=== PATIENT | female | born 1945 | race Caucasian/White ===

== ENCOUNTER → 2016-12-02 | Outpatient (CLI) | payer OTHER, BC ==
[~2016-12-02] MED LIST: ASPIRIN81 M2 PO; OXYBUTYNIN CHLOR5 M1 PO; PRAVASTATIN SOD40 MG PO; ROXICODONE5 MG PO; ZOFRAN4 MG PO
== END | disposition home or self-care (01) ==
LOC: EKG 11-30 10:00
DX: C48.1 Malignant neoplasm of specified parts of peritoneum (principal); C48.2 Malignant neoplasm of peritoneum, unspecified; R18.0 Malignant ascites
CPT/HCPCS: 93306

== ENCOUNTER 2016-12-18 10:48 | Emergency (ER) | payer OTHER, BC ==
[~2016-12-18] VITALS: Ht 167.6 cm; Wt 54.9 kg
[2016-12-18 12:13] LABS: HEMATOCRIT 32.5 % (36.0-46.0); INSTRUMENT ABS NEUTROPHIL CT 1.9 K/uL; LYMPHOCYTE COUNT 0.4 K/uL (1.0-2.8); MCH 33.4 PG (29.0-34.0); MCHC 32.9 G/DL (30.0-36.0); MEAN PLAT.VOLUME 9.8 uM^3 (9.5-12.4); MONOCYTE (%) 20.8 % (3-12); MONOCYTE COUNT 0.6 K/uL (0-0.8); NEUTROPHIL (%) 62.7 % (45-76); NEUTROPHIL COUNT 1.9 K/uL (1.8-6.4); PLATELET COUNT 191 K/uL (156-360); RBC DIS.WIDTH-CV 18.9 % (11.8-14.6); RBC DIS.WIDTH-SD 70.6 % (39-53)
[2016-12-18 12:16] LABS: MCV 101.6 FL (83-99)
[2016-12-18 12:22] LABS: CHLORIDE 104 mEq/L (99-109); POTASSIUM 4.4 mEq/L (3.7-5.4); SODIUM 135 mEq/L (136-147)
[2016-12-18 12:24] LABS: GLUCOSE 91 mg/dL (70-99)
[2016-12-18 12:26] LABS: ANION GAP 9 MEQ/L (2-14); TOTAL BILIRUBIN 0.4 mg/dL (0.0-1.0)
[2016-12-18 12:28] LABS: ALKALINE PHOSPHATASE 70 IU/L (3-129); GFR ESTIMATE (CALCULATED) 52 mL/min/
[2016-12-18 12:29] LABS: UREA NITROGEN (BUN) 18 mg/dL (9-23)
[2016-12-18 12:35] LABS: TROP-I INTERPRETATION NEGATIVE; TROPONIN-I < 0.01 ng/mL (0.0-0.30)
[2016-12-18] MEDS ORDERED: PROAIR HFA8.5 GM IH (15:03)
[2016-12-18] MEDS ORDERED: ZITHROMAX Z-PA250 MG PO (15:03)
[2016-12-18 15:43] VITALS: BP 137/78
== END 2016-12-18 15:30 | disposition home or self-care (01) ==
LOC: EME 10:48
PROVIDERS: Emergency Medicine
DX: R06.00 Dyspnea, unspecified (principal); C48.2 Malignant neoplasm of peritoneum, unspecified; E78.5 Hyperlipidemia, unspecified; Z79.82 Long term (current) use of aspirin
CPT/HCPCS: 71275; 80053; 83880; 84484; 85025; 93005; 94640; 99281; 99285; J7040